=== PATIENT | male | born 1995 | race Caucasian/White ===

== ENCOUNTER 2021-11-17 12:19 | Outpatient (CLI) | payer OTHER, BC, MEDICAID, SELFPAY ==
[2021-11-17 13:23] LABS: SARS-CoV-2 RNA PCR Negative (Negative)
== END 2021-11-17 12:20 | disposition home or self-care (01) ==
LOC: CHSLAB 12:28
PROVIDERS: PCP Family Medicine; Visit Provider Family Medicine
DX: Z01.818 Encounter for other preprocedural examination (principal); Z20.822 Contact with and (suspected) exposure to COVID-19
CPT/HCPCS: C9803; U0003; U0005

== ENCOUNTER 2023-04-21 22:08 | Emergency (ER) | payer BC, SELFPAY ==
--- NOTE | 2023-04-21 22:10 | PC.NURSE ---
Addendum entered by Riri Chance RN 04/21/23 22:26: [facility] Patient extremely agitated, shouting, cursing at police. Patient arrived handcuffed and was assisted into ED by police. Original Note: Patient arrived via [facility]
--- NOTE | 2023-04-21 22:12 | PC.NURSE ---
Patient remains extremely agitated and handcuffed per PD. RN and ERP unable to assess patient upon arrival or obtain initial triage information including VS. PD report to ED staff patient was intoxicated stating he has drank alcohol and used drugs. PD calling [facility] to request patient to be incarcerated for the night.
--- NOTE | 2023-04-21 22:19 | PC.NURSE ---
Addendum entered by Riri Chance RN 04/21/23 22:48: correction. Police taking patient to [facility], not [facility]. Original Note: Patient continues shouting and cursing at police, remains intensely agitated with police. [facility] deputy confirms they are able to take patient to [facility] for the night. Patient awake and assisted out of ED on foot by police.
--- NOTE | 2023-04-21 22:28 | ED_ITS ---
HPI - Psych General Stated Complaint: agitation Source: patient, EMS and police Mode of arrival: ambulatory History of Present Illness HPI Narrative: 27-year-old male with a history of drug abuse, alcohol use was brought in by the police for -- agitation -- patient's mother stated that he had made suicidal threats. Patient was very aggressive and was thrashing around. The patient was handcuffed. The patient could not be examined as he was very violent and aggressive. The police who brought him here called the [place] for direct transfer to the nursing home. I never got an opportunity to talk to the patient not examined him. Discharge Plan Discharge Follow-up/Referrals: Chon,MD Abdi [Primary Care Provider] -
== END 2023-04-21 22:20 | disposition left against medical advice (07) ==
LOC: CHSED 22:13
PROVIDERS: Emergency Provider Internal Medicine Critical Care Medicine; PCP Family Medicine
DX: R45.1 Restlessness and agitation (principal)
CPT/HCPCS: 99199